=== PATIENT | female | born 2005 | race Two or more races ===

== ENCOUNTER 2024-07-28 20:59 | Emergency (ER) | payer MEDICAID, OTHER ==
[~2024-07-28] VITALS: Ht 154.9 cm; Wt 70.0 kg
[2024-07-28] MEDS: IPRATROPIUM BROM 0.5 MG/2.5ML INH SOL NEB ONE (21:16)
[2024-07-28] MEDS: ALBUTEROL SULF 2.5 MG/0.5ML(0.5%) NEB SOLN NEB ONE (21:16)
[2024-07-28] MEDS: DexAMETHasone SOD PHOS 10MG/1ML VIAL INJ IM ONE (21:43)
[2024-07-28] MEDS ORDERED: FLUT1INH2 IN (21:48)
[2024-07-28] MEDS ORDERED: ALBU108A5 IN (21:48)
[2024-07-28] MEDS ORDERED: ALBU1.258 IN (21:48)
--- NOTE | 2024-07-28 21:48 | ED.PDOC ---
SOB-HPI HPI Comments PATIENT C/O SOB/ASTHMA FOR 4DAYS. RAN OUT OF INHALER TODAY. HAS USED INHALER WITHOUT RELIEF. PATIENT SATURATING 93% ON ROOM AIR. DENIES DIFFICULTY BREATHING, CHEST PAIN, FEVER OR CHILLS. 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 [employer] WASTE SERVICES History Family History Family History: Reviewed,noncontributory to illness Social History Smoker: Non-Smoker Alcohol: Denies ETOH Use Drugs: Denies Drug Use Constitutional: denies: chills, diaphoresis, fatigue, fever, malaise, sweats, weakness, others EENTM: denies: blurred vision, double vision, ear bleeding, ear discharge, ear drainage, ear pain, ear ringing, eye pain, eye redness, hearing loss, mouth pain, mouth swelling, nasal discharge, nose bleeding, nose congestion, nose pain, photophobia, tearing, throat pain, throat swelling, voice changes, others Respiratory: reports: SOB at rest, wheezing; denies: cough, hemoptysis, orthopnea, shortness of breath, SOB with excertion, stridor, others Cardiovascular: denies: chest pain, dizzy spells, diaphoresis, Dyspnea on exertion, edema, irregular heart beat, left arm pain, lightheadedness, palpitations, PND, syncope, others Gastrointestinal: denies: abdomen distended, abdominal pain, blood streaked bowels, constipated, diarrhea, dysphagia, difficulty swallowing, hematemesis, melena, nausea, poor appetite, poor fluid intake, rectal bleeding, rectal pain, vomiting, others Genitourinary: denies: abnormal vagina bleeding, burning, dyspareunia, dysuria, flank pain, frequency, hematuria, incontinence, pain, , vagina discharge, urgency, others Neurological: denies: dizziness, fainting, headache, left sided numbness, left sided weakness, numbness, paresthesia, pre-existing deficit, right sided numbness, right sided weakness, seizure, speech problems, tingling, tremors, weakness, others Musculoskeletal: denies: back pain, gout, joint pain, joint swelling, muscle pain, muscle stiffness, neck pain, others Integumetry: denies: bruises, change in color, change in hair/nails, dryness, laceration, lesions, lumps, rash, wounds, others Allergic/Immunocompromised: denies: Difficulty Healing, Frequent Infections, Hives, Itching, others Hematologic/Lymphatic: denies: anemia, blood clots, easy bleeding, easy bruising, swollen glands, others Endocrine: denies: excessive hunger, excessive sweating, excessive thirst, excessive urination, flushing, intolerance to cold, intolerance to heat, unexplained weight gain, unexplained weight loss, others Psychiatric: denies: anxiety, bipolar disorder, depression, hopeless, panic disorder, schizophrenia, sleepless, suicidal, others Physical Exam General Appearance: No Apparent Distress, Normal HEENT: Normal ENT Inspection, Pharynx Normal, TMs Normal Neck: Full Range of Motion, Non-Tender Respiratory: Expiration, Inspiration, No Accessory Muscle Use, No Respiratory Distress, Wheezing Cardiovascular: No Edema, No JVD, No Murmur, No Gallop, Normal Peripheral Pulses, Regular Rate/Rhythm Breast Exam: Deferred Gastrointestinal: Non Tender, Soft Genitalia: Deferred Pelvic: Deferred Rectal: Deferred Extremities: Normal capillary refill, Normal inspection, Normal range of motion, Non-tender, No pedal edema Musculoskeletal : Apperance: Normal Neurologic: Alert, No Motor Deficits, Normal Affect, Normal Mood, No Sensory Deficits Cerebellar Function: Normal Reflexes: Normal Skin: Dry, Normal Color, Warm Lymphatic: No Adenopathy Was a procedure done? Was a procedure done?: No Differential Dx Differential Diagnosis: Asthma, Bronchitis, Pneumonia X-Ray, Labs, Meds, VS Vital Signs Date Time Temp Pulse Resp B/P (MAP) Pulse Ox O2 Delivery O2 Flow Rate FiO2 07/28/24 22:24 98.1 82 16 124/82 (96) 97 98.1 07/28/24 22:24 82 16 97 Room Air* 0 21 07/28/24 21:16 20 94 Room Air* 0 21 07/28/24 21:05 98.2 85 16 124/76 (92) 93 98.2 07/28/24 21:05 18 93 Room Air* 0 21 X-Ray, Labs, Meds, VS Comment PATIENT GIVEN DUO NEB AND DEXAMETHASONE IM REPORTS IMPROVEMENT LUNG SOUNDS CLEAR EQUAL BILATERAL REQUESTING DISCHARGE AT THIS TIME. SCRIPT PATIENT'S MEDICATION BASED ON REPORTED HISTORY ADVISED TO TAKE MEDICATIONS PRESCRIBED SIDE EFFECTS DISCUSSED. HE IS TO FOLLOW UP WITH HER PCP IN 2-3 DAYS FOR FURTHER REFILLS. ER RETURN PRECAUTIONS GIVEN PATIENT INDICATES UNDERSTANDING AGREES WITH DISCHARGE PLAN OF CARE. Time of 1ST Reevaluation: 21:10 Reevaluation 1ST: Unchanged Time of 2ND Reevaluation: 21:48 Reevaluation 2ND: Improved Patient Education/Counseling: Diagnosis, Treatment, Prognosis, Need For Follow Up Family Education/Counseling: No Family Present Departure 1 Departure Time of Disposition: 21:41 Impression: Primary Impression: Acute asthma Disposition: HOME / SELF CARE / HOMELESS Condition: Stable e-Prescriptions Albuterol Sulfate (Albuterol Sulfate) 1.25 Mg/3 Ml Neb 1.25 MG IN Q6HP PRN for 14 Days, #30 INH Prov: WESLY TREJO 07/28/24 Fluticasone Furoate (Inhalatio (Arnuity Ellipta) 100 Mcg/Act Inh 2 PUFF IN BID for 30 Days, #1 INHALER Prov: WESLY TREJO 07/28/24 Albuterol Sulfate (Albuterol Sulfate Hfa) 108 Mcg/Act Aer 108 MCG IN 5XD PRN for 30 Days, #1 INHALER 1-2 PUFFS EVERY 4-6 HOURS NEEDED FOR WHEEZING OR SHORTNESS OF BREATH Prov: WESLY TREJO 07/28/24 Discharged With: Self Critical Care Note Critical Care Time?: No Stability Stability form required: No Heart Score Heart Score: Heart Score Response (Comments) Value History N/A 0 EKG N/A 0 Age <45 0 Risk Factors N/A 0 Troponin N/A 0 Total 0 WESLY TREJO Jul 28, 2024 21:48
[2024-07-28 22:24] VITALS: BP 124/82; PULSE 82; RESP 16; TEMP 98.1; O2SAT 97
== END 2024-07-28 22:26 | disposition home or self-care (01) ==
LOC: ER 20:59
DX: J45.909 Unspecified asthma, uncomplicated (principal)
CPT/HCPCS: 94640; 96372; 99283; J1100

== ENCOUNTER 2024-09-30 16:37 | Emergency (ER) | payer MEDICAID ==
[~2024-09-30] VITALS: Ht 162.6 cm; Wt 70.0 kg
--- NOTE | 2024-09-30 18:13 | ED.PDOC ---
CARDIAC CATH LAB RADIOLOGY TECHNOLOGIST HPI Comments 19 y/o F, presents to the ED for CC of pelvic pain. Patient reports, that she is currently [id number] and has been experiencing sudden onset pelvic pain/cramping x3days. Patient relays, to have associated clear vaginal discharge which began with commencement of symptoms. Patient denies abdominal cramping, back pain, vaginal bleeding, nausea, recent intercourse, trauma, injuries, or fall. No other symptoms or modifying factors present at this time. Chief Complaint: Pelvic Pain Time Seen by MD: 18:00 Reviewed Notes: Nurses Notes, Medications, Allergies Allergies: Coded Allergies: NO KNOWN ALLERGIES (Unverified , 07/28/24) Information Source: Patient Mode of Arrival: Ambulatory Timing: Days Prehospital treatment: None Severity: Moderate Vaginal Discharge: Clear Vaginal Lesions: None Vaginal Mass: None Sexual Activity: Last Consensual [place]: Unknown Blood Type: Unknown Associated Signs and Symptoms: Other (pelvic pain) Past Medical History PAST MEDICAL HISTORY: Asthma, Denies Surgical History: Denies all surgeries VENDING MANAGER History: No Pertinent VENDING MANAGER History Family History Family History: Reviewed,noncontributory to illness Social History Smoker: Non-Smoker Alcohol: Denies ETOH Use Drugs: Denies Drug Use Lives In: Home Constitutional: denies: chills, diaphoresis, fatigue, fever, malaise, sweats, weakness, others EENTM: denies: blurred vision, double vision, ear bleeding, ear discharge, ear drainage, ear pain, ear ringing, eye pain, eye redness, hearing loss, mouth pa in, mouth swelling, nasal discharge, nose bleeding, nose congestion, nose pain, photophobia, tearing, throat pain, throat swelling, voice changes, others Respiratory: denies: cough, hemoptysis, orthopnea, SOB at rest, shortness of breath, SOB with excertion, stridor, wheezing, others Cardiovascular: denies: chest pain, dizzy spells, diaphoresis, Dyspnea on exertion, edema, irregular heart beat, left arm pain, lightheadedness, palpitations, PND, syncope, others Gastrointestinal: denies: abdomen distended, abdominal pain, blood streaked bowels, constipated, diarrhea, dysphagia, difficulty swallowing, hematemesis, melena, nausea, poor appetite, poor fluid intake, rectal bleeding, rectal pain, vomiting, others Genitourinary: reports: others (pelvic pain, groin pain); denies: abnormal vagina bleeding, burning, dyspareunia, dysuria, flank pain, frequency, hematuria, incontinence, pain, , vagina discharge, urgency Neurological: denies: dizziness, fainting, headache, left sided numbness, left sided weakness, numbness, paresthesia, pre-existing deficit, right sided numbness, right sided weakness, seizure, speech problems, tingling, tremors, weakness, others Musculoskeletal: denies: back pain, gout, joint pain, joint swelling, muscle pain, muscle stiffness, neck pain, others Integumetry: denies: bruises, change in color, change in hair/nails, dryness, laceration, lesions, lumps, rash, wounds, others Allergic/Immunocompromised: denies: Difficulty Healing, Frequent Infections, Hives, Itching, others Hematologic/Lymphatic: denies: anemia, blood clots, easy bleeding, easy bruising, swollen glands, others Endocrine: denies: excessive hunger, excessive sweating, excessive thirst, excessive urination, flushing, intolerance to cold, intolerance to heat, unexplained weight gain, unexplained weight loss, others Psychiatric: denies: anxiety, bipolar disorder, depression, hopeless, panic disorder, schizophrenia, sleepless, suicidal, others All Other Systems: Reviewed and Negative Physical Exam General Appearance: No Apparent Distress, Normal HEENT: Normal ENT Inspection, Pharynx Normal Neck: Full Range of Motion, Non-Tender, Normal, Normal Inspection Respiratory: Chest Non-Tender, Lungs Clear, No Accessory Muscle Use, No Respiratory Distress, Normal Breath Sounds Cardiovascular: No Edema, No Murmur, No Gallop, Normal Peripheral Pulses, Regular Rate/Rhythm Breast Exam: Deferred Gastrointestinal: No Organomegaly, Non Tender, No Pulsatile Mass, Normal Bowel Sounds, Soft Genitalia: Deferred Pelvic: Deferred Rectal: Deferred Extremities: No calf tenderness, Normal capillary refill, Normal inspection, Normal range of motion, Non-tender, No pedal edema Musculoskeletal : Apperance: Normal Neurologic: Alert, coating and baking operator II-XII nml as Tested, No Motor Deficits, Normal Affect, Normal Mood, No Sensory Deficits Cerebellar Function: Normal Reflexes: Normal Skin: Dry, Normal Color, Warm Lymphatic: No Adenopathy Was a procedure done? Was a procedure done?: No Differential Diagnosis (VENDING MANAGER) Vaginal Bleeding: - Complete, - Incomplete, - Inevitable, - Missed, Dysmenorrhea, Ectopic , N/A Mass / Lesion: N/A Vaginal Discharge: Other (pelvic pain, constipation, UTI), N/A X-Ray, Labs, Meds, VS Vital Signs Date Time Temp Pulse Resp B/P (MAP) Pulse Ox O2 Delivery O2 Flow Rate FiO2 09/30/24 16:39 99.1 90 15 121/68 98 99.1 Lab Test 09/30/24 18:48 09/30/24 18:10 Range/Units Beta HCG, Quantitative 326.4 H 1.5-4.2 mIU/mL Urine Color Light-yellow Yellow Urine Clarity Clear Clear Urine pH 6.0 5.0-9.0 Urine Specific [place] 1.018 1.001-1.035 Urine Protein Negative Negative Urine Ketones Negative Negative Urine Blood Negative Negative /uL Urine Nitrite Negative Negative Urine Bilirubin Negative Negative Urine Urobilinogen Normal Negative mg/dL Urine Leukocyte Esterase Negative Negative /uL Urine RBC <1 0 - 4 /hpf Urine Microscopic WBC 1 0-5 /HPF Urine Squamous Epithelial Cells Few <5 /hpf Urine Bacteria None seen None Seen /hpf Urine Glucose Normal Normal mg/dL X-Ray, Labs, Meds, VS Comment Imaging was reviewed by this provider, there is no obvious pathological or acute disease process. Pending radiology review Labs were reviewed by this provider, positive Vital signs reviewed by this provider, clinically stable Time of 1ST Reevaluation: 18:30 Reevaluation 1ST: Unchanged Patient Education/Counseling: Diagnosis, Treatment, Need For Follow Up (I follow up in two days for recheck a beta: And recheck ultrasound) Family Education/Counseling: No Family Present Departure 1 Departure Time of Disposition: 22:37 Impression: Primary Impression: Threatened miscarriage in early Disposition: 01 HOME / SELF CARE / HOMELESS Condition: Fair Discharged With: Self Critical Care Note Critical Care Time?: No Stability Stability form required: No Heart Score Heart Score: Heart Score Response (Comments) Value History N/A 0 EKG N/A 0 Age N/A 0 Risk Factors N/A 0 Troponin N/A 0 Total 0 I personally scribed for JAZ SAUER ([email or web address]) on 09/30/24 at 18:13. Electronically submitted by Laverne Khan ([email or web address]). I personally scribed for JAZ SAUER ([email or web address]) on 09/30/24 at 18:16. Electronically submitted by Laverne Khan ([email or web address]). JAZ SAUER Sep 30, 2024 18:13
[2024-09-30 18:45] LABS: Urine Protein, UAD Negative (Negative)
--- NOTE | 2024-09-30 20:59 | DVH ---
OB ULTRASOUND <14 WEEKS: HISTORY: abd pain TECHNIQUE: Multiple real-time grayscale sonographic images of the pelvis with duplex doppler color fl ow, spectral and M-mode analysis. TRANSDUCERS: FINDINGS: The uterus measures 7.2 X 4.5 X 4.6 cm. The uterus is retroverted. The endometrium is thickened kamila uring 16mm. Right ovary measures 2.2 X 1.9 X 2.5 with normal Doppler color flow Left ovary measures 2.5 X 2.5 X 2.4 with normal Doppler color flow. 1.5 cm right corpus luteum. IMPRESSION: 1. No intrauterine identified. Findings compatible with of unknown location given positive HCG . Obtained follow-up as indicated.
[2024-09-30 23:12] VITALS: BP 125/77; PULSE 85; RESP 19; TEMP 98.2; O2SAT 96
== END 2024-09-30 23:15 | disposition home or self-care (01) ==
LOC: ER 16:37
DX: O20.0 Threatened abortion (principal); J45.909 Unspecified asthma, uncomplicated; Z3A.01 Less than 8 weeks gestation of pregnancy
CPT/HCPCS: 36415; 76801; 76817; 81001; 84702